=== PATIENT | male | born 1975 | race Two or more races ===

== ENCOUNTER 2017-10-15 08:39 | Day surgery (SDC) | payer OTHER ==
[2017-10-14 09:20] VITALS: BMI 22.2
[2017-10-15] MEDS ORDERED: PROMETHAZINE HCL 25 MG/1 ML VIAL IVPUSH PRN (11:40)
[2017-10-15] MEDS ORDERED: oxyCODONE HCL 5 MG TABLET PO PRN ×2 (11:40→13:37)
[2017-10-15] MEDS ORDERED: ONDANSETRON 4 MG/2 ML VIAL IVPUSH PRN (11:40)
[2017-10-15] MEDS ORDERED: LACTATED RINGERS SOLUTION 1,000 ML IV SCH (11:45)
[2017-10-15] MEDS ORDERED: MIDAZOLAM HCL 2 MG/2 ML SINGLE DOSE VIAL ONE (12:21)
[2017-10-15] MEDS ORDERED: ceFAZolin SODIUM 1 GM VIAL IVPB ONE (12:25)
[2017-10-15] MEDS ORDERED: PROPOFOL 20 ML ONE (12:26)
[2017-10-15] MEDS ORDERED: DESFLURANE GAS 240 ML BOTTLE IH ONE (12:35)
[2017-10-15] MEDS ORDERED: SEVOFLURANE 250 ML BTL ONE (12:35)
[2017-10-15] MEDS ORDERED: ACETAMINOPHEN 325 MG TABLET (FP) PO PRN ×2 (13:10→13:38)
--- NOTE | 2017-10-15 13:15 | OP ---
Operative Note - Note: Operative Date: 10/15/17 Pre-Operative Diagnosis: lt. hydronephrosis Operation: lull with jj stent Implants: 24cm-6f lt. jj stent Post-Operative Diagnosis: Same as Pre-op Surgeon: Clau Seth Anesthesia: General Estimated Blood Loss (mls): 0 Drains, Volume Out (mls): 0 Fluid Volume Replaced (mls): 0 Operative Report Dictated: Yes
--- NOTE | 2017-10-15 13:15 | HP ---
DATE OF ADMISSION: 10/15/2017 HISTORY OF PRESENT ILLNESS: Patient is a 42-year-old male with history of nephrolithiasis who recently developed left-sided flank pain. A CT scan revealed severe left hydroureteronephrosis to the level of the left lower ureter. The patient also has frequency, urgency, and nocturia x1. He denies any allergies. He denies any high blood pressure or diabetes. SOCIAL HISTORY: He denies ethanolism or tobacco. PHYSICAL EXAMINATION: General: Revealed a well-developed adult male. Abdomen: Is soft. There is left CVA tenderness. Genitalia are atraumatic. Testes are normal in size and consistency. No hernias or hydroceles were elicited. Phallus is normal. Meatus is adequate. His prostate is 2+, benign, nontender. Bulbocavernosus reflex is brisk. Saddle sensation is present. DIAGNOSTIC DATA: Urinalysis is positive for blood, negative for nitrates. The patient underwent preoperative workup including an MRI which revealed severe left hydroureteronephrosis. No specific stone was encountered. EKG was within normal limits. BUN 15, creatinine 0.84, random glucose 80. Patients cholesterol profile is within normal limits. Liver enzymes are all normal. Coagulation profile is normal. White count is 6.4, hemoglobin 14.7, hematocrit 44.8, platelets 201. IMPRESSION: At present is a 42-year-old male with left hydroureteronephrosis, history of nephrolithiasis . PLAN: Is to perform a cystourethroscopy, left retrograde pyelogram, left ureteroscopic laser lithotripsy, and placement of a left JJ stent. Alvaro [id number]
--- NOTE | 2017-10-15 14:18 | OP ---
DATE OF OPERATION: 10/15/2017 SURGEON: Clau Seth MD PREOPERATIVE DIAGNOSIS: Left hydroureteronephrosis. POSTOPERATIVE DIAGNOSIS: Left hydroureteronephrosis. OPERATIVE PROCEDURE: Cystourethroscopy, left retrograde pyelograms, left ureteroscopic stone manipulation, and placement of a left JJ stent. ANESTHESIA: General. DESCRIPTION OF PROCEDURE: Under above stated anesthesia, patient was prepped and draped in the usual sterile manner. He was placed in the dorsal lithotomy position. Cystoscopy revealed a normal urethra. Prostatic urethra was opened. Bladder was entered. No lesions were noted, no calculi were seen. Ureteral orifices were within normal limits. There was efflux of clear urine from the right, none was seen from the left. A Flexi-Tip catheter was placed into the left ureteral orifice, and approximately 10 mL of contrast fluid was injected. This revealed a severe hydroureteronephrosis down to the ureterovesical junction. A Glidewire was passed up into the left renal unit under x-ray control. The cystoscope was removed. A semi-rigid ureteroscope was then introduced. Ureteroscopy was performed. The entire ureter was dilated. Inspection of the upper ureter as well as the renal collecting system revealed no lesions or calculi. Therefore, the ureteroscope was removed. A 24-cm 6-[place] JJ stent was left in place. X-rays confirmed good position of the stent. The bladder was emptied. The scope was removed. The patient tolerated the procedure well. He returned to the recovery room in good condition. Alvaro [id number]
[2017-10-15 14:29] VITALS: TEMP 97.9
[2017-10-15 15:30] VITALS: BP 134/77; PULSE 62
== END 2017-10-15 15:35 | disposition home or self-care (01) ==
LOC: JASU-SURG 08:39
PROVIDERS: ATTEND Urology
PROC: 0T778DZ Dilation of Left Ureter with Intraluminal Device, Via Natural or Artificial Opening Endoscopic (ICD-10-PCS; principal; 2017-10-15 10:00)
DX: N13.30 Unspecified hydronephrosis (principal)
CPT/HCPCS: 76000-TC-FY; 94760